=== PATIENT | male | born 1985 | race Caucasian/White ===

== ENCOUNTER 2023-03-09 14:08 | Emergency (ER) | payer OTHER ==
[2023-03-09] MEDS ORDERED: Tetracaine HCl/PF 0.5% 4 ML Bottle EYELF ONE (14:11)
[2023-03-09] MEDS ORDERED: Erythromycin Base 0.5% Ophth Oint 3.5 GM Tube EYEBOTH ONE (14:23)
== END 2023-03-09 14:35 | disposition home or self-care (01) ==
LOC: KA.ED 14:08
DX: S05.02XA Injury of conjunctiva and corneal abrasion without foreign body, left eye, initial encounter (principal); W22.09XA Striking against other stationary object, initial encounter; Y99.0 Civilian activity done for income or pay
CPT/HCPCS: 99282; 99283; A9270-GY; J3490